=== PATIENT | male | born 1940 | race Caucasian/White ===

== ENCOUNTER 2022-02-12 05:28 | Day surgery (SDC) | payer OTHER, MEDICAID ==
[2022-02-10 11:27] LABS: COVID AG,FIA SOURCE NASOPHARYNGEAL
[~2022-02-12] VITALS: Ht 182.9 cm; Wt 109.1 kg
[2022-02-12] MEDS ORDERED: FentaNYL CITRATE PF 100 MCG/2 ML VIAL IVP ONE (05:29)
[2022-02-12] MEDS ORDERED: EPINEPHrine 1:1,000 [1 MG/ML] VIAL SQ ONE (05:29)
[2022-02-12] MEDS ORDERED: CHONDR SULF A SOD/HYALURONATE 1.05 ML KIT IO ONE (05:29)
[2022-02-12] MEDS ORDERED: MIDAZOLAM HCL 2 MG/2 ML VIAL IVP ONE (05:29)
[2022-02-12] MEDS ORDERED: BALANCED SALT 15 ML OPHTHALMIC IRRIG.SOLN IO ONE (05:29)
[2022-02-12] MEDS ORDERED: LIDOCAINE/PF 1% 2 ML VIAL SQ ONE (05:29)
[2022-02-12] MEDS ORDERED: TETRACAINE HCL/PF 0.5% 4 ML OPHTHALMIC SOLUTION OD ONE (05:29)
[2022-02-12] MEDS ORDERED: POVIDONE-IODINE 5% 30 ML OPHTHALMIC SOLUTION OD ONE (05:29)
[2022-02-12] MEDS ORDERED: RINGERS SOLUTION,LACTATED 500 ML IV ONE ×2 (06:00→06:09)
[2022-02-12] MEDS ORDERED: PHENYLEPHRINE HCL 2.5% 2 ML OPHTHALMIC SOLUTION ONE (06:08)
[2022-02-12] MEDS ORDERED: KETOROLAC TROMETHAMINE 0.5% 5 ML OPHTHALMIC SOLUTION ONE (06:08)
[2022-02-12] MEDS ORDERED: TROPICAMIDE 1% 2 ML OPHTHALMIC SOLUTION ONE (06:08)
[2022-02-12] MEDS ORDERED: MOXIFLOXACIN HCL 0.5% 3 ML OPHTHALMIC SOLUTION ONE (06:08)
[2022-02-12] MEDS: MOXIFLOXACIN HCL 0.5% 3 ML OPHTHALMIC SOLUTION OS SCH ×3 (06:27→06:37)
[2022-02-12] MEDS: PHENYLEPHRINE HCL 2.5% 2 ML OPHTHALMIC SOLUTION OS SCH ×3 (06:27→06:37)
[2022-02-12] MEDS: TROPICAMIDE 1% 2 ML OPHTHALMIC SOLUTION OS SCH ×3 (06:27→06:37)
[2022-02-12] MEDS: KETOROLAC TROMETHAMINE 0.5% 5 ML OPHTHALMIC SOLUTION OS SCH ×3 (06:27→06:37)
[2022-02-12] MEDS ORDERED: TAMS-13 PO (07:45)
[2022-02-12] MEDS ORDERED: ATOR20TA86 PO (07:45)
[2022-02-12] MEDS ORDERED: LISI-894 PO (07:45)
[2022-02-12] MEDS ORDERED: PANT-31 PO (07:45)
[2022-02-12] MEDS ORDERED: CHOL500013 PO (07:45)
[2022-02-12] MEDS ORDERED: ASCO500 PO (07:45)
[2022-02-12] MEDS ORDERED: GABA-1181 PO (07:45)
[2022-02-12] MEDS ORDERED: HYDR200T38 PO (07:45)
[2022-02-12] MEDS ORDERED: MEMA10TA11 PO (07:45)
[2022-02-12] MEDS ORDERED: DOCU-385 PO (07:45)
[2022-02-12] MEDS ORDERED: DONE-52 PO (07:45)
[2022-02-12] MEDS ORDERED: TIOT4MIS3 PUFF (07:47)
== END 2022-02-12 09:25 | disposition home or self-care (01) ==
LOC: SURGERY 05:28
PROVIDERS: ATTEND Ophthalmology
DX: H25.12 Age-related nuclear cataract, left eye (principal); I10 Essential (primary) hypertension; H40.033 Anatomical narrow angle, bilateral; Z20.822 Contact with and (suspected) exposure to COVID-19; Z79.899 Other long term (current) drug therapy; Z98.890 Other specified postprocedural states
CPT/HCPCS: 93005; 87426; 66984; C9803; J0171; J3010; J3490; J2250; Q9967; J7120; V2632

== ENCOUNTER 2023-03-25 10:00 | Day surgery (SDC) | payer OTHER, MEDICAID ==
[~2023-03-25] VITALS: Ht 180.3 cm; Wt 113.6 kg
[~2023-03-25 10:00] MED LIST: ASCO500 PO; ATOR20TA PO; CHOL500013 PO; DOCU-385 PO; DONE-52 PO; GABA-1181 PO; HYDR200T38 PO; KETOROLAC TROMETHAMINE 0.5% 5 ML OPHTHALMIC SOLUTION ONE; LISI-894 PO; MEMA10TA11 PO; MOXIFLOXACIN HCL 0.5% 3 ML OPHTHALMIC SOLUTION ONE; PANT-31 PO; PHENYLEPHRINE HCL 2.5% 2 ML OPHTHALMIC SOLUTION ONE; RINGERS SOLUTION,LACTATED 500 ML IV ONE; TAMS0.4C94 PO; TIOT4MIS3 PUFF; TROPICAMIDE 1% 2 ML OPHTHALMIC SOLUTION ONE
[2023-03-25] MEDS ORDERED: FentaNYL CITRATE PF 100 MCG/2 ML VIAL IVP ONE (10:01)
[2023-03-25] MEDS ORDERED: MIDAZOLAM HCL 2 MG/2 ML VIAL IVP ONE (10:01)
[2023-03-25] MEDS ORDERED: LIDOCAINE/PF 1% 2 ML VIAL ONE (10:38)
[2023-03-25] MEDS ORDERED: EPINEPHrine 1:1,000 [1 MG/ML] VIAL ONE (10:38)
[2023-03-25] MEDS ORDERED: POVIDONE-IODINE 5% 30 ML OPHTHALMIC SOLUTION ONE (10:38)
[2023-03-25] MEDS ORDERED: BALANCED SALT 15 ML OPHTHALMIC IRRIG.SOLN ONE (10:38)
[2023-03-25] MEDS ORDERED: BUPR-112 PO (10:41)
[2023-03-25] MEDS ORDERED: METO25 PO (10:41)
[2023-03-25] MEDS ORDERED: BUME1TAB34 PO (10:41)
[2023-03-25] MEDS ORDERED: SENN-376 PO (10:42)
[2023-03-25] MEDS ORDERED: ASPI-1450 PO (10:42)
[2023-03-25] MEDS ORDERED: CHOL200059 PO (10:49)
[2023-03-25] MEDS: KETOROLAC TROMETHAMINE 0.5% 5 ML OPHTHALMIC SOLUTION OD SCH ×3 (10:50→11:06)
[2023-03-25] MEDS: PHENYLEPHRINE HCL 2.5% 2 ML OPHTHALMIC SOLUTION OD SCH ×3 (10:51→11:06)
[2023-03-25] MEDS: MOXIFLOXACIN HCL 0.5% 3 ML OPHTHALMIC SOLUTION OD SCH ×3 (10:51→11:06)
[2023-03-25] MEDS: TROPICAMIDE 1% 2 ML OPHTHALMIC SOLUTION OD SCH ×3 (10:51→11:06)
== END 2023-03-25 13:55 | disposition home or self-care (01) ==
LOC: SURGERY 10:00
PROVIDERS: ATTEND Ophthalmology
DX: H25.11 Age-related nuclear cataract, right eye (principal); Z79.899 Other long term (current) drug therapy; J44.9 Chronic obstructive pulmonary disease, unspecified; I10 Essential (primary) hypertension; Z98.890 Other specified postprocedural states; Z95.2 Presence of prosthetic heart valve; Z98.42 Cataract extraction status, left eye; Z96.651 Presence of right artificial knee joint
CPT/HCPCS: 66984; 93005; J0171; J3010; J3490; J2250; Q9967; J7120; V2632